=== PATIENT | male | born 1950 | race Caucasian/White ===

== ENCOUNTER 2019-03-11 11:51 | Day surgery (SDC) | payer MEDICARE ==
[~2019-03-11] VITALS: Ht 185.4 cm; Wt 118.4 kg
[~2019-03-11 11:51] MED LIST: ASPI325; Advil200 M1 PO; HYDCHL12.5; HYDMOR4 PO; PROM25 PO; RXHYDACE PO; SILDENAFIL20 MG PO; SPIHYD
[2019-03-11] MEDS ORDERED: NAPR220 ×2 (12:21→12:22)
== END 2019-03-11 13:40 | disposition home or self-care (01) ==
LOC: ORSCSDS 11:51
PROVIDERS: Internal Medicine Gastroenterology
PROC: 0DBM8ZX Excision of Descending Colon, Via Natural or Artificial Opening Endoscopic, Diagnostic (ICD-10-PCS; principal; 2019-03-11 13:00)
DX: Z12.11 Encounter for screening for malignant neoplasm of colon (principal); Z86.010 Personal history of colon polyps; D12.4 Benign neoplasm of descending colon; K63.5 Polyp of colon; K57.30 Diverticulosis of large intestine without perforation or abscess without bleeding; K64.8 Other hemorrhoids
CPT/HCPCS: 86803; 88305; J1980; J2704; J7120

== ENCOUNTER 2019-05-12 05:57 | Emergency (ER) | payer MEDICARE ==
[~2019-05-12] VITALS: Ht 185.4 cm; Wt 118.8 kg
[~2019-05-12 05:57] MED LIST changes: +NAPR220
[2019-05-12 06:19] LABS: BASOPHILS ABSOLUTE AUTO 0.08 K/mm3 (0.00-0.23); BASOPHILS PERCENT AUTO 1 % (0-2); EOSINOPHILS PERCENT AUTO 4 % (0-6); Hemoglobin 16.4 g/dL (13.5-17.5); IMMATURE GRAN ABSOLUTE AUTO 0.03 K/mm3 (0.00-0.10); IMMATURE GRAN PERCENT AUTO 0 % (0-1); LYMPHOCYTES ABSOLUTE AUTO 2.53 K/mm3 (0.84-5.20); LYMPHOCYTES PERCENT AUTO 27 % (21-46); MONOCYTES ABSOLUTE AUTO 0.96 K/mm3 (0.16-1.47); MONOCYTES PERCENT AUTO 10 % (4-13); Mean Corpuscular HGB 30.8 pg (26.0-34.0); Mean Corpuscular HGB Conc 34.2 g/dL (31.5-36.5); Mean Corpuscular Volume 90 fL (80-100); NEUTROPHILS ABSOLUTE AUTO 5.34 K/mm3 (1.96-9.15); NEUTROPHILS PERCENT AUTO 57 % (41-73); Platelet Count 199 K/mm3 (150-400); RDW Coefficient Variation 12.2 % (11.7-14.2); RDW Standard Deviation 40.5 fL (35.1-46.3); Red Blood Cell Count 5.33 M/mm3 (4.30-5.90); White Blood Cell Count 9.34 K/mm3 (4.00-11.30)
[2019-05-12 06:38] LABS: Troponin I <0.015 ng/mL (0.000-0.040)
[2019-05-12 06:39] LABS: Alanine Aminotransfer (ALT/SGP 21 U/L (12-78); Albumin, Blood 3.5 g/dL (3.4-5.0); Alk Phos 75 U/L (50-136); Anion Gap 5 mmol/L (6-16); Aspartate Aminotrans (AST/SGOT 12 U/L (12-37); Bilirubin, Total 0.4 mg/dL (0.1-1.0); Blood Urea Nitrogen 19 mg/dL (8-24); Bun/Creatinine Ratio 19.1 (12.0-20.0); CO2, Blood 27 mmol/L (21-32); Calcium, Blood 8.6 mg/dL (8.5-10.1); Chloride, Blood 109 mmol/L (98-108); Globulin, Blood 3.5 g/dL (2.2-4.0); Glomerular Filtration Rate >60 (60-); Glucose, Blood 102 mg/dL (70-99); Potassium, Blood 4.2 mmol/L (3.5-5.5); Sodium, Blood 141 mmol/L (136-145)
== END 2019-05-12 10:10 | disposition home or self-care (01) ==
LOC: ER 05:57
PROVIDERS: Emergency Medicine
DX: R07.9 Chest pain, unspecified (principal)
CPT/HCPCS: 36415; 71045; 80053; 83690; 84484; 85025; 93005; 93010; 96374; 96375; 99285-25; J1170; J2405

== ENCOUNTER 2021-01-12 09:17 | Inpatient (IN) | payer MEDICARE, BC ==
[~2021-01-12] VITALS: Ht 188 cm; Wt 121.4 kg
[2021-01-12] MEDS ORDERED: LOSA25 PO (09:49)
[2021-01-12] MEDS ORDERED: Ventolin/Prove6.7 GM INH (09:49)
[2021-01-12 10:15] LABS: BASOPHILS ABSOLUTE AUTO 0.05 K/mm3 (0.00-0.23); BASOPHILS PERCENT AUTO 1 % (0-2); EOSINOPHILS ABSOLUTE AUTO 0.17 K/mm3 (0.00-0.68); EOSINOPHILS PERCENT AUTO 2 % (0-6); Hematocrit 42.8 % (37.0-53.0); Hemoglobin 14.4 g/dL (13.5-17.5); IMMATURE GRAN ABSOLUTE AUTO 0.04 K/mm3 (0.00-0.10); IMMATURE GRAN PERCENT AUTO 1 % (0-1); LYMPHOCYTES ABSOLUTE AUTO 1.64 K/mm3 (0.84-5.20); LYMPHOCYTES PERCENT AUTO 24 % (21-46); MONOCYTES ABSOLUTE AUTO 0.76 K/mm3 (0.16-1.47); MONOCYTES PERCENT AUTO 11 % (4-13); Mean Corpuscular HGB 29.9 pg (26.0-34.0); Mean Corpuscular HGB Conc 33.6 g/dL (31.5-36.5); Mean Corpuscular Volume 89 fL (80-100); Mean Platelet Volume 10.2 fL (9.1-12.4); NEUTROPHILS ABSOLUTE AUTO 4.33 K/mm3 (1.96-9.15); NEUTROPHILS PERCENT AUTO 62 % (41-73); Platelet Count 218 K/mm3 (150-400); RDW Standard Deviation 42.9 fL (35.1-46.3); Red Blood Cell Count 4.81 M/mm3 (4.30-5.90); White Blood Cell Count 6.99 K/mm3 (4.00-11.30)
[2021-01-12 10:53] LABS: Alanine Aminotransfer (ALT/SGP 24 U/L (12-78); Albumin, Blood 3.2 g/dL (3.4-5.0); Albumin/Globulin Ratio 0.9 (0.8-1.8); Alk Phos 66 U/L (50-136); Anion Gap 5 mmol/L (6-16); Aspartate Aminotrans (AST/SGOT 18 U/L (12-37); Bilirubin, Total 0.6 mg/dL (0.1-1.0); Blood Urea Nitrogen 20 mg/dL (8-24); Bun/Creatinine Ratio 17.7 (12.0-20.0); CO2, Blood 25 mmol/L (21-32); Calcium, Blood 8.7 mg/dL (8.5-10.1); Chloride, Blood 110 mmol/L (98-108); Creatinine, Blood 1.13 mg/dL (0.60-1.20); Globulin, Blood 3.7 g/dL (2.2-4.0); Glomerular Filtration Rate >60 (60-); Glucose, Blood 100 mg/dL (70-99); Potassium, Blood 3.8 mmol/L (3.5-5.5); Sodium, Blood 140 mmol/L (136-145); Total Protein, Blood 6.9 g/dL (6.4-8.2)
[2021-01-12 10:57] LABS: Troponin I 0.745 ng/mL (0.000-0.040)
[2021-01-12] MEDS ORDERED: LOSA50 PO (11:40)
[2021-01-12 11:54] LABS: International Normalized Ratio 1.08; Prothrombin Time Results 11.6 Sec (9.7-11.5)
--- NOTE | 2021-01-12 15:50 | NUR ---
INITIAL ASSESSMENT: RECIEVED REPORT FROM XAVIER IN THE ED. PATIENT WENT TO THE SAND MIXER OPERATOR AND THEN CAME TO PCU 02. PT ARRIVED IN THE BED WITH HEART CENTER STAFF AT BEDSIDE. RIGHT GROIN AND RADIAL SITES. RIGHT RADIAL SITE WITH SCANT AMOUTN OF OOZING, TR BAND IN PLACE WITH 12CC AIR IN THE BAND PER HC RN. CAP REFILL BRISK, PT DENIES N/T. RIGHT GROIN SITE WITH TEGADERM DRESSING MINIMAL AMOUT OF OOZING PRESENT. HRR. LS CTA. BIOX WNL ON RA BT+. PT DENIES PAIN AT THIS TIME. BLOOD PRESSURE ELEVATED, SEE FLOW SHEET. PPP. HC STAFF STATES PT RECIEVED ONE SENT TO THE RCA AND MID CIRC. THE PATIENT ALSO NEEDS A POSSIBLE STENT TO THE LAD, WILL REASSESS RENAL FUNCTION IN THE AM TO SEE IF THE PATIENT IS APPROPRIATE TO RETURN TO THE SAND MIXER OPERATOR. PT DENIES NEEDS AT THIS TIME. PT ORIENTED TO ROOM AND CALL LIGHT. CALL LIGHT IN REACH, WILL CONTINUE TO MONITOR.
--- NOTE | 2021-01-12 16:15 | NUR ---
MODERATE AMOUT OF OOZING ON THE TEGADERM DRESSING ON THE RIGHT MARCOS, PRESSURE APPLIED FOR APPRXIMATELY 5 MIN, DR. BAILEY CAME TO SEE THE PATIENT. HE HELD PRESSURE FOR ABOUT 5 MORE MIN AND THEN DECIDED TO PLACE A FEMSTOP. INITIAL PRESSURE 110 MMHG WITH THE FOLLOWING INSTRUCTIONS: 1650-PRESSRE AT 80 MMHG 1720-PRESSURE 80 MM HG 1750-PRESSURE AT 40 MMHG AT 1950 THE FEMSTOP CAN COME OFF. BLOOD PRESSURE REMAINS ELEVATED. IV METOPROLOL AND PO METOPROLOL GIVEN. PT EDUCATED ON THE GROIN SITE RESTRICTIONS. PT DENIES OTHER NEEDS AT THIS TIME. WILL CONTINUE TO ROSIO.
--- NOTE | 2021-01-12 18:30 | NUR ---
2CC AIR REMOVED FROM THE TR BAND, NO OOZING PRESENT. RIGHT GROIN SITE REMAINS STABLE WITH FEMSTOP IN PLACE, PRESSURE TITRATED DOWN PER MD ORDERS. PEDAL PULSE REMAINED STRONG IN THE RIGHT FOOT, NO NUMBNESS OR TINGLING NOTED. BLOOD PRESSURE IS SLOWLY COMING DOWN. PT C/O SOME ANXIETY AND HEART BURN EARLIER, SEE MD ORDERS. PT DENIES NEEDS AT THIS TIME. CALL LIGHT IN REACH, WILL CONTINUE TO MONITOR.
--- NOTE | 2021-01-12 20:02 | NUR ---
PATIENT WENT TO THE SLOT AMBASSADOR AND HAD A COUPLE OF STENTS PLACED. THE HEART CENTER HAD TO GO INTO THE RIGHT RADIAL AND RIGHT GROIN. THE RIGHT RADIAL SITE REMAINED STABLE T/O THE SHIFT, I REMOVED 4CC OF AIR WITH NO OOZING. RIGHT GROIN SITE STARTED TO OOZE SHORTLY AFTER THE PATIENT ARRIVED TO THE FLOOR, A FEMSTOP WAS PLACED AND PRESSURE WAS GRADUALLY REMOVED. PATIENT WAS INITIALLY HYPERTENSIVE, AFTER METOPROLOL AND ATARAX THE PATIENTS BLOOD PRESSURE STARTED TO COME DOWN. PT WILL BE NPO AFTER MIDNIGHT FOR A POSSIBLE RETURN TO THE SLOT AMBASSADOR. BSR GIVEN TO [place].
[2021-01-13 03:50] LABS: BASOPHILS ABSOLUTE AUTO 0.05 K/mm3 (0.00-0.23); BASOPHILS PERCENT AUTO 1 % (0-2); EOSINOPHILS ABSOLUTE AUTO 0.18 K/mm3 (0.00-0.68); EOSINOPHILS PERCENT AUTO 2 % (0-6); Hematocrit 38.2 % (37.0-53.0); IMMATURE GRAN ABSOLUTE AUTO 0.03 K/mm3 (0.00-0.10); IMMATURE GRAN PERCENT AUTO 0 % (0-1); LYMPHOCYTES PERCENT AUTO 18 % (21-46); MONOCYTES ABSOLUTE AUTO 0.89 K/mm3 (0.16-1.47); MONOCYTES PERCENT AUTO 10 % (4-13); Mean Corpuscular HGB 30.4 pg (26.0-34.0); Mean Corpuscular Volume 89 fL (80-100); Mean Platelet Volume 10.3 fL (9.1-12.4); NEUTROPHILS ABSOLUTE AUTO 5.94 K/mm3 (1.96-9.15); NEUTROPHILS PERCENT AUTO 69 % (41-73); Platelet Count 191 K/mm3 (150-400); RDW Coefficient Variation 13.2 % (11.7-14.2); Red Blood Cell Count 4.28 M/mm3 (4.30-5.90); White Blood Cell Count 8.59 K/mm3 (4.00-11.30)
[2021-01-13 04:22] LABS: Alanine Aminotransfer (ALT/SGP 22 U/L (12-78); Albumin, Blood 2.9 g/dL (3.4-5.0); Alk Phos 50 U/L (50-136); Anion Gap 4 mmol/L (6-16); Aspartate Aminotrans (AST/SGOT 15 U/L (12-37); Bilirubin, Total 0.5 mg/dL (0.1-1.0); Blood Urea Nitrogen 14 mg/dL (8-24); Bun/Creatinine Ratio 14.7 (12.0-20.0); CO2, Blood 26 mmol/L (21-32); Calcium, Blood 7.9 mg/dL (8.5-10.1); Chloride, Blood 110 mmol/L (98-108); Cholesterol 183 mg/dL (50-200); Creatinine, Blood 0.95 mg/dL (0.60-1.20); Globulin, Blood 2.9 g/dL (2.2-4.0); Glomerular Filtration Rate >60 (60-); Glucose, Blood 95 mg/dL (70-99); HDL Cholesterol 46 mg/dL (>39); LDL/HDL RATIO 2.4; Low Density Lipoprotein Chol 110 mg/dL (0-110); Potassium, Blood 3.9 mmol/L (3.5-5.5); Sodium, Blood 140 mmol/L (136-145); Total Protein, Blood 5.8 g/dL (6.4-8.2); Triglycerides 134 mg/dL (30-160); Very Low Density Lipoprot Chol 26 mg/dL (6-32)
[2021-01-13 04:30] LABS: Troponin I 0.972 ng/mL (0.000-0.040)
--- NOTE | 2021-01-13 04:55 | NUR ---
SHIFT SUMMARY AOX4, VSS T/O SHIFT. ROOM AIR. ON TELE, SINUS RHYTHM IN 70'S. R RADIAL AND R FEMORAL SITE WNL, NO ACTIVE BLEEDING FOLLOWING REMOVAL OF TR BAND AND FEM STOP DEVICES. PT DENIED CP T/O SHIFT. PT C/O BACK PAIN, TREATED WITH TYLENOL AND ULTRAM PER ORDERS. SOME RELIEF FOLLOWING ADMIN MEDS. PT NPO AFTER MIDNIGHT DUE TO PROCEDURE IN AM FOR STENT IN LAD. NS INFUSING PER ORDERS.
--- NOTE | 2021-01-13 08:00 | NUR ---
pt laying in bed awake a/ox3, pleasant and cooperative with care, follows commands well, denies pain, states he's feeling good, better than before angio but understands he needs another stent, and is hoping it happens today, lungs are clear t/o, resp even and unlabored, no cough noted, hrr, tele in place running sr per monitor, see strip, no edema noted, ppp+2, cap refill <3sec vs stable, afebrile, iv site is clear and patent, btx4, abd flat soft nontender, voids without diff, skin c/w/d, maew, solitario, call light in reach. cardiology in room.
--- NOTE | 2021-01-13 19:21 | NUR ---
pt had an uneventful day, no complaints of chest pain, refused afternoon dose of ntg due to headache, no further changes or needs, npo after mid for angio in am. call light in reach.
[2021-01-14 03:59] LABS: BASOPHILS ABSOLUTE AUTO 0.04 K/mm3 (0.00-0.23); BASOPHILS PERCENT AUTO 1 % (0-2); EOSINOPHILS ABSOLUTE AUTO 0.28 K/mm3 (0.00-0.68); EOSINOPHILS PERCENT AUTO 4 % (0-6); Hematocrit 38.3 % (37.0-53.0); Hemoglobin 13.1 g/dL (13.5-17.5); IMMATURE GRAN ABSOLUTE AUTO 0.04 K/mm3 (0.00-0.10); IMMATURE GRAN PERCENT AUTO 1 % (0-1); LYMPHOCYTES ABSOLUTE AUTO 1.76 K/mm3 (0.84-5.20); LYMPHOCYTES PERCENT AUTO 24 % (21-46); MONOCYTES ABSOLUTE AUTO 0.84 K/mm3 (0.16-1.47); MONOCYTES PERCENT AUTO 11 % (4-13); Mean Corpuscular HGB 30.5 pg (26.0-34.0); Mean Corpuscular HGB Conc 34.2 g/dL (31.5-36.5); Mean Corpuscular Volume 89 fL (80-100); Mean Platelet Volume 10.5 fL (9.1-12.4); NEUTROPHILS ABSOLUTE AUTO 4.41 K/mm3 (1.96-9.15); NEUTROPHILS PERCENT AUTO 60 % (41-73); Platelet Count 195 K/mm3 (150-400); RDW Coefficient Variation 13.1 % (11.7-14.2); RDW Standard Deviation 42.5 fL (35.1-46.3); White Blood Cell Count 7.37 K/mm3 (4.00-11.30)
[2021-01-14 04:22] LABS: Anion Gap 4 mmol/L (6-16); Blood Urea Nitrogen 12 mg/dL (8-24); Bun/Creatinine Ratio 12.4 (12.0-20.0); CO2, Blood 26 mmol/L (21-32); Calcium, Blood 8.4 mg/dL (8.5-10.1); Chloride, Blood 110 mmol/L (98-108); Creatinine, Blood 0.97 mg/dL (0.60-1.20); Glomerular Filtration Rate >60 (60-); Glucose, Blood 96 mg/dL (70-99); Sodium, Blood 140 mmol/L (136-145)
--- NOTE | 2021-01-14 04:57 | NUR ---
SHIFT SUMMARY AOX4, VSS. RA. BREATHING EVEN AND UNLABORED. ON TELE, SINUS RHYTHM 60'S. DENIES CP T/O SHIFT. PT NPO AFTER 0000 FOR STENT PLACEMENT IN AM. PT UP TO BATHROOM INDEPENDENTLY. RESTLESS T/O NIGHT. DENIES PAIN. NO BLEEDING SEEN TO R RADIAL AND R FEM SITES. DRESSINGS INTACT. NS INFUSING PER ORDERS.
--- NOTE | 2021-01-14 08:00 | NUR ---
Pt laying in bed on the phone, a/ox3, pleasant and cooperative with care, follows commands well, denies any complaints of pain now or through the night, lungs clear on r/a, hrr, tele in place running sr per monitor, see strip, no edema noted, ppp+2, cap refill <3sec, vs stable, afebrile, iv site is clear and pantet, infusing ns as ordered, btx4, had bm this am, voids without diff, skin c/w/d, maew, solitario, call light in reach.
--- NOTE | 2021-01-14 18:46 | NUR ---
pt is recovering from angio, tr band site, have started to deflate tr band with no problems, site is clear, he recieved one long stent to mid lad, v.s. remain stable, reported a few minutes ago that he has just a niggling in his left chest, explained it is likely from irritation, but reported to night bellows charger assembler and asked pt to let staff know if it changes. no further changes, call light in reach.
[2021-01-15 03:54] LABS: BASOPHILS ABSOLUTE AUTO 0.03 K/mm3 (0.00-0.23); BASOPHILS PERCENT AUTO 0 % (0-2); EOSINOPHILS ABSOLUTE AUTO 0.28 K/mm3 (0.00-0.68); EOSINOPHILS PERCENT AUTO 4 % (0-6); Hematocrit 39.8 % (37.0-53.0); Hemoglobin 13.5 g/dL (13.5-17.5); IMMATURE GRAN ABSOLUTE AUTO 0.04 K/mm3 (0.00-0.10); IMMATURE GRAN PERCENT AUTO 1 % (0-1); LYMPHOCYTES ABSOLUTE AUTO 1.47 K/mm3 (0.84-5.20); LYMPHOCYTES PERCENT AUTO 19 % (21-46); MONOCYTES ABSOLUTE AUTO 0.93 K/mm3 (0.16-1.47); MONOCYTES PERCENT AUTO 12 % (4-13); Mean Corpuscular HGB 30.4 pg (26.0-34.0); Mean Corpuscular HGB Conc 33.9 g/dL (31.5-36.5); Mean Corpuscular Volume 90 fL (80-100); Mean Platelet Volume 10.4 fL (9.1-12.4); NEUTROPHILS PERCENT AUTO 65 % (41-73); Platelet Count 197 K/mm3 (150-400); RDW Coefficient Variation 13.2 % (11.7-14.2); RDW Standard Deviation 42.8 fL (35.1-46.3); Red Blood Cell Count 4.44 M/mm3 (4.30-5.90); White Blood Cell Count 7.85 K/mm3 (4.00-11.30)
[2021-01-15 04:12] LABS: Anion Gap 4 mmol/L (6-16); Blood Urea Nitrogen 12 mg/dL (8-24); CO2, Blood 27 mmol/L (21-32); Calcium, Blood 8.7 mg/dL (8.5-10.1); Chloride, Blood 109 mmol/L (98-108); Glomerular Filtration Rate >60 (60-); Glucose, Blood 93 mg/dL (70-99); Potassium, Blood 3.7 mmol/L (3.5-5.5); Sodium, Blood 140 mmol/L (136-145)
--- NOTE | 2021-01-15 06:04 | NUR ---
SHIFT SUMMARY PT AOX4, VSS, ROOM AIR T/O SHIFT. SINUS IN 50'S-60'S. OCCASIONAL READ OF 47-48 BPM. VS OTHERWISE STABLE. TR BAND DEFLATED AND REMOVED, WINDOW DRESSING TO SITE, NO ACTIVE BLEEDING, STRONG R RADIAL PULSE, SMALL HEMATOMA TO PUNCTURE SITE, FAINT BRUISING TO AREAS UNDER TR BAND. PT DENIED CP. NS INFUSING 75 MLS/HR. PT UP TO BATHROOM INDEPENDENTLY.
--- NOTE | 2021-01-15 08:00 | NUR ---
pt laying in bed, has been up to br and to sit in a chair this am, he is ready to get things together to go home, no complaints of pain, Dr. Felix was in to see him, and cleared him, tr band site is clear with occlusive dressing in place, instructed him to no strain wrist, or lift any thing heavy with the right hand, call light in reach.
--- NOTE | 2021-01-15 08:19 | NUR ---
UPDATE: Pt ambulated in saeed with RN. Tolerated walking around unit and down ICU hallway without any issues. Denied Chest pain, SOB or dizziness. Patient states that he feels good and that he is ready to be discharged. Call light in reach. Will monitor.
[2021-01-15] MEDS ORDERED: ASPI81CH PO (09:09)
[2021-01-15] MEDS ORDERED: ATOR40TA PO (09:10)
[2021-01-15] MEDS ORDERED: METO25ER PO (09:11)
[2021-01-15] MEDS ORDERED: TICA90TA PO (09:12)
--- NOTE | 2021-01-15 10:30 | NUR ---
PT HAS BEE DISCHARGED TO HOME, HIS STENT CARD WAS GIVEN TO HIM, IV REMOVED INTACT, WENT OVER DISCHARGE INSTRUCTIONS, HE VERBALIZED UNDERSTANDING, LEFT VIA AMBULATION WITH MARKETING AUTOMATION SPECIALIST IN ATTENDENCE.
== END 2021-01-15 10:05 | disposition home or self-care (01) | DRG 247 ==
LOC: ER 09:17 → PCU 11:38
PROVIDERS: Emergency Medicine; Internal Medicine Cardiovascular Disease; Nurse Practitioner Acute Care; Pharmacist; ADMIT Internal Medicine
PROC: 027135Z Dilation of Coronary Artery, Two Arteries with Two Drug-eluting Intraluminal Devices, Percutaneous Approach (ICD-10-PCS; principal; 2021-01-12)
PROC: 4A023N7 Measurement of Cardiac Sampling and Pressure, Left Heart, Percutaneous Approach (ICD-10-PCS; 2021-01-12)
PROC: B2111ZZ Fluoroscopy of Multiple Coronary Arteries using Low Osmolar Contrast (ICD-10-PCS; 2021-01-12)
PROC: B2151ZZ Fluoroscopy of Left Heart using Low Osmolar Contrast (ICD-10-PCS; 2021-01-12)
PROC: 4A033BC Measurement of Arterial Pressure, Coronary, Percutaneous Approach (ICD-10-PCS; 2021-01-12)
PROC: 027034Z Dilation of Coronary Artery, One Artery with Drug-eluting Intraluminal Device, Percutaneous Approach (ICD-10-PCS; 2021-01-14)
DX: I21.4 Non-ST elevation (NSTEMI) myocardial infarction (principal); Q21.1 Atrial septal defect; E78.5 Hyperlipidemia, unspecified; J44.9 Chronic obstructive pulmonary disease, unspecified; I71.2 Thoracic aortic aneurysm, without rupture; F10.10 Alcohol abuse, uncomplicated; I50.9 Heart failure, unspecified; I11.0 Hypertensive heart disease with heart failure; E66.01 Morbid (severe) obesity due to excess calories; E87.6 Hypokalemia; K58.9 Irritable bowel syndrome, unspecified; D64.9 Anemia, unspecified; Z90.49 Acquired absence of other specified parts of digestive tract; Z98.890 Other specified postprocedural states; Z87.442 Personal history of urinary calculi; Z98.1 Arthrodesis status; Z79.899 Other long term (current) drug therapy; Z68.32 Body mass index [BMI] 32.0-32.9, adult; Z71.3 Dietary counseling and surveillance
CPT/HCPCS: 36415; 71045; 76937; 80048; 80053; 80061; 83036; 83735; 83880; 84484; 85025; 85347; 85610; 85730; 93005; 93010; 93306; 93454; 93458; 93571; 94760; 96365; 99152; 99153; 99285-25; A9270; C1725; C1760; C1769; C1874; C1887; C1894; C9600; J1644; J2250; J3010; J7030; J7040; Q9967

== ENCOUNTER → 2022-04-20 | Outpatient (CLI) | payer MEDICARE, BC ==
[~2022-04-20] MED LIST changes: +ASPI81CH PO; +ATOR40TA PO; +LOSA25 PO; +LOSA50 PO; +METO25ER PO; +TICA90TA PO; +Ventolin/Prove6.7 GM INH
== END | disposition home or self-care (01) ==
LOC: LAB 08:16 → LAB SHORT 08:16
DX: L01.01 Non-bullous impetigo (principal); L81.4 Other melanin hyperpigmentation; L82.1 Other seborrheic keratosis; D22.61 Melanocytic nevi of right upper limb, including shoulder; D22.39 Melanocytic nevi of other parts of face; D22.62 Melanocytic nevi of left upper limb, including shoulder; D22.5 Melanocytic nevi of trunk; L57.0 Actinic keratosis
CPT/HCPCS: 87070; 87205

== ENCOUNTER 2023-11-30 17:18 | Emergency (ER) | payer MEDICARE, BC ==
[~2023-11-30] VITALS: Ht 185.4 cm; Wt 117.9 kg
[~2023-11-30 17:18] MED LIST changes: +BACTRIM DS TAB1 EAC1 PO; +FURO20 PO; +MELO7.5 PO; +VARDENAFIL HCL10 M1 PO
[2023-11-30 17:54] LABS: BASOPHILS ABSOLUTE AUTO 0.06 K/mm3 (0.00-0.23); BASOPHILS PERCENT AUTO 0 % (0-2); EOSINOPHILS PERCENT AUTO 1 % (0-6); Hematocrit 42.7 % (37.0-53.0); Hemoglobin 14.1 g/dL (13.5-17.5); IMMATURE GRAN ABSOLUTE AUTO 0.08 K/mm3 (0.00-0.10); IMMATURE GRAN PERCENT AUTO 1 % (0-1); LYMPHOCYTES ABSOLUTE AUTO 1.44 K/mm3 (0.84-5.20); LYMPHOCYTES PERCENT AUTO 9 % (21-46); MONOCYTES ABSOLUTE AUTO 1.44 K/mm3 (0.16-1.47); MONOCYTES PERCENT AUTO 9 % (4-13); Mean Corpuscular HGB 30.2 pg (26.0-34.0); Mean Corpuscular Volume 91 fL (80-100); Mean Platelet Volume 10.2 fL (9.1-12.4); NEUTROPHILS ABSOLUTE AUTO 13.66 K/mm3 (1.96-9.15); NEUTROPHILS PERCENT AUTO 81 % (41-73); Platelet Count 209 K/mm3 (150-400); RDW Coefficient Variation 13.5 % (11.7-14.2); RDW Standard Deviation 45.4 fL (35.1-46.3); Red Blood Cell Count 4.67 M/mm3 (4.30-5.90); White Blood Cell Count 16.78 K/mm3 (4.00-11.30)
[2023-11-30 18:18] LABS: Albumin, Blood 3.6 g/dL (3.4-5.0); Bun/Creatinine Ratio 19.6 (12.0-20.0); Calcium, Blood 9.4 mg/dL (8.5-10.1); Creatinine, Blood 1.07 mg/dL (0.60-1.20); Globulin, Blood 3.7 g/dL (2.2-4.0); Total Protein, Blood 7.3 g/dL (6.4-8.2)
[2023-11-30] MEDS ORDERED: Bactrim Ds Tab1 EACH PO (22:44)
[2023-11-30] MEDS ORDERED: Keflex500 MG PO (22:44)
[2023-11-30] MEDS ORDERED: Acetaminophen 500 MG Tab PO ONE (22:45)
[2023-11-30] MEDS ORDERED: Trimethoprim/Sulfamethoxazole DS Tab PO ONE (22:45)
[2023-11-30] MEDS ORDERED: Cephalexin Monohydrate 500 MG Cap PO ONE (22:45)
[2023-11-30] MEDS ORDERED: Ketorolac Tromethamine 30mg Vial IV ONE (22:45)
[2023-11-30 23:03] VITALS: BP 136/85
== END 2023-11-30 23:02 | disposition home or self-care (01) ==
LOC: ER 17:18
PROVIDERS: Student in an Organized Health Care Education/Training Program
DX: L03.317 Cellulitis of buttock (principal); I10 Essential (primary) hypertension; Z79.899 Other long term (current) drug therapy; Z79.82 Long term (current) use of aspirin
CPT/HCPCS: 80053; 85025; 93005; 93010; 96374; 99283-25; A9270; J1885